=== PATIENT | male | born 1940 | race Caucasian/White ===

== ENCOUNTER 2024-03-25 11:41 | Outpatient (REF) | payer OTHER, SELFPAY | END 2024-03-25 11:42 | disposition home or self-care (01) | LOC: HO.LAB 11:41 | DX: Z13.89 Encounter for screening for other disorder (principal) ==

== ENCOUNTER 2024-03-25 11:41 | Outpatient (AMB) | payer OTHER, SELFPAY ==
--- NOTE | 2024-03-25 12:46 | AM.OFFWIN_ITS ---
Intake Vital Signs 03/25/24 13:11 Weight 198 lb BP 126/78 Blood Pressure Location Rt brachial Position Sitting Pulse 62 Pulse Source Pulse Oximeter Temp 98.2 F Temp Source Oral Pulse Oximetry (%) 98 Oxygen Delivery Method Room Air Intake Visit Reasons: EP cold, cough, congested Intake Note: Patient here for cough, congestion and wheezing that started Thursday Patient Tobacco Use Status: Never used Tobacco Allergies No Known Allergies Allergy (Verified 03/25/24 13:13) Do you need a note to return to daycare/school/sports/work: No HPI HPI Comments History of Present Illness Details History - The patient is an 83-year-old male pre senting with cough and wheezing. - Symptoms, including sore throat, cough , and wheezing, started last Thursday and have persisted for three days. - The patient reports having previous ep isodes of pneumonia and acknowledges a lower lobe lung problem related to smoking. - There is no current use of inhalers, a nd [id number] medications have not provided relief. - Notable absent symptoms include fever, ear pain, and sinus pain. - The cough is severe, causing wheezing and necessitating postural changes to manage. - The patient's son has similar symptoms , suggesting potential exposure. Physical Exam General: Cooperative, healthy appearing, comfortable and no acute distress Orientation/consciousness: Patient oriented x3 Limitations: No limitations Head: Normal to inspection Ears: Hearing grossly normal bilaterally, external ears normal and TM's normal bilaterally Nose: Normal external nose present, Normal nares present and No nasal discharge present Face and sinus: Normal facial exam and Yes sinuses nontender Mouth: Normal oral and palatal mucosa present and moist mucous membranes Throat: Yes tonsils normal, Yes uvula midline. Posterior oropharynx erythema Eyes: Appearance normal, both eyes and all related structures Neck: Normal visual inspection Respiratory: Vesicular lung sounds throughout with exp wheezes throughout. Normal respiratory effort, able to speak in complete sentences, Actively coughing, no respiratory distress, not tachypneic, no tripod positioning and no use of accessory muscles, wheezing on exhale, some junk in lungs Cardiovascular: Regular rate and rhythm. Normal S1 and S2 Skin: No rashes or lesions noted Neuro: Patient oriented x3 Extremities: Normal to inspection and Yes no clubbing, cyanosis or edema PFSH Social History Patient Tobacco Use Status: Never used Tobacco Review of Systems Const All systems reviewed & are unremarkable except as noted in HPI and below Physical Exam Vital Signs: Last Vital Signs Temp 98.2 F 03/25/24 13:11 Pulse 62 03/25/24 13:11 BP 126/78 03/25/24 13:11 Pulse Ox 98 03/25/24 13:11 Oxygen Delivery Method Room Air 03/25/24 13:11 Assessment & Plan Assessment & Plan (1) Lower respiratory infection (e.g., bronchitis, pneumonia, pneumonitis, pulmonitis): Code(s): J22 - Unspecified acute lower respiratory infection Plan: The patient is scheduled for a respiratory viral panel test, and a chest x-ray has been ordered to evaluate for possible pneumonia. Treatment decisions will follow these diagnostic results. Prednisone has been prescribed to manage wheezing. The patient is advised to collect the prednisone from the pharmacy and initiate treatment in the morning to avoid potential sleep disturbances. Further antibiotic therapy will be contingent upon the respiratory panel results. Follow-up communication will be established to relay the results of the chest x- ray and the viral panel, adjusting the treatment plan as needed based on findings, with the aim of providing the appropriate medical intervention promptly. Patient was informed and verbally consented to the use of an ambient scribe for clinic note documentation during this visit Orders: Orders XR chest 2V Today R05.9 - Cough, unspecified Resp Pathogen Panel - [facility] [place] Today J06.9 - Acute upper respiratory infection, unspecified Medications: New prednisone 40 mg (2 x 20 mg) PO DAILY 10 tabs 0RF Coding Level of Care Code New Pt Level 4 (80784) Diagnoses Lower respiratory infection (e.g., bronchitis, pneumonia, pneumonitis, pulmonitis) J22
[2024-03-25 13:11] VITALS: BP 126/78; PULSE 62; TEMP 36.8; O2SAT 98
== END 2024-03-25 13:28 | disposition home or self-care (01) ==
PROVIDERS: Visit Provider Physician Assistant
DX: J22 Unspecified acute lower respiratory infection (principal)

== ENCOUNTER 2024-03-25 13:26 | Outpatient (REF) | payer OTHER, SELFPAY ==
--- NOTE | ~2024-03-25 | XR_ITS ---
CLINICAL HISTORY: R05.9 - Cough, unspecified 2 view chest x-ray Comparison: None Findings: No consolidation, pleural effusion or pneumothorax. Cardiac silhouette is mildly enlarged. No CHF. Thoracic spondylosis with multilevel endplate osteophytes. IMPRESSION: 1. No acute findings. This document has been electronically signed by: Digna Melendez DO on 03/25/2024 15:13:56
[2024-03-26 10:05] LABS: Adenovirus PCR Not Detected (Not Detect.); Bordetella parapertussis PCR Not Detected (Not Detect.); Bordetella pertussis PCR Not Detected (Not Detect.); Chlamydia pneumoniae PCR Not Detected (Not Detect.); Coronavirus 229E PCR Not Detected (Not Detect.); Coronavirus HKU1 PCR Not Detected (Not Detect.); Coronavirus NL63 PCR Not Detected (Not Detect.); Coronavirus OC43 PCR Not Detected (Not Detect.); Human metapneumovirus PCR Not Detected (Not Detect.); Influenza A PCR Not Detected (Not Detect.); Influenza B PCR Not Detected (Not Detect.); Mycoplasma pneumoniae PCR Not Detected (Not Detect.); Parainfluenza 1 PCR Not Detected (Not Detect.); Parainfluenza 2 PCR Not Detected (Not Detect.); Parainfluenza 3 PCR Not Detected (Not Detect.); Parainfluenza 4 PCR Not Detected (Not Detect.); RSV PCR Detected (Not Detect.); Rhino/Enterovirus PCR Not Detected (Not Detect.)
[2024-03-26 10:35] LABS: SARS-CoV-2 PCR Not Detected (Not Detect.)
== END 2024-03-25 13:27 | disposition home or self-care (01) ==
LOC: HO.HMGCX 13:26
PROVIDERS: PCP Internal Medicine; Visit Provider Physician Assistant
DX: R05.9 Cough, unspecified (principal); J06.9 Acute upper respiratory infection, unspecified
CPT/HCPCS: 71046; 87633

== ENCOUNTER → 2024-03-25 13:32 | Outpatient (BNV) | payer OTHER, SELFPAY | PROVIDERS: PCP Internal Medicine; Visit Provider Radiology Diagnostic Radiology | DX: R05.9 Cough, unspecified (principal) | CPT/HCPCS: 71046 ==

== ENCOUNTER 2024-05-23 08:06 | Outpatient (AMB) | payer OTHER, SELFPAY ==
[2024-05-23 08:11] VITALS: BP 132/90; PULSE 80; TEMP 36.9; O2SAT 95
--- NOTE | 2024-05-23 08:11 | AM.OFFWIN_ITS ---
Intake Vital Signs 3 05/23/24 08:11 Weight 199 lb BP 132/90 H Blood Pressure Location Lt brachial Position Sitting Pulse 80 Pulse Source Pulse Oximeter Temp 98.4 F Temp Source Oral Pulse Oximetry (%) 95 Oxygen Delivery Method Room Air Intake Visit Reasons: EP ? infection inside mouth jaw & lips Intake Note: Patient here for lip swelling and jaw pain that started about 4-5 days ago. Patient Tobacco Use Status: Never used Tobacco Allergies No Known Allergies Allergy (Verified 05/23/24 08:21) Do you need a note to return to daycare/school/sports/work: No HPI HPI Comments 2 History of Present Illness0 Details History of Present Illness The patient is an 83-year-old male presenting with dental infection. Reports tenderness in the lip and jaw, with the bottom lip swollen and sore gums. These symptoms started four to five days ago. The patient denies any tingling, numbness, or throat involvement, and there are no reported fevers. There is no dental pain, although one front tooth is noted to be loose. The patient has been advised to consult a dentist for a thorough evaluation and management of the condition. Physical Exam General: Cooperative, healthy appearing, comfortable, no acute distress and well developed Orientation: Patient oriented x3 Limitations: No limitations Head: Normal to inspection Ears: Hearing grossly normal bilaterally Nose: Normal Nxternal nose present Face and sinus: Tenderness in the jaw, swollen bottom lip Eyes: Appearance normal, both eyes and all related structures Neck: Normal visual inspection and Yes full ROM Respiratory: Normal respiratory effort and able to speak in complete sentences. Skin: No rashes or lesions noted Neuro: Patient oriented x3 Extremities: Normal to inspection [facility] Social History Patient Tobacco Use Status: Never used Tobacco Review of Systems Const All systems reviewed & are unremarkable except as noted in HPI and below Physical Exam Vital Signs: Last Vital Signs Temp 98.4 F 05/23/24 08:11 Pulse 80 05/23/24 08:11 BP 132/90 H 05/23/24 08:11 Pulse Ox 95 05/23/24 08:11 Oxygen Delivery Method Room Air 05/23/24 08:11 HEENT Teeth image: 2 1. erythema, ttp and slight edema,no drainage Assessment & Plan Assessment & Plan (1) Dental infection: Code(s): K04.7 - Periapical abscess without sinus Plan: The patient is directed to commence treatment with Augmentin, dosed every 12 hours for seven days, to manage the suspected dental infection. The patient is instructed to follow up with their dentist to determine the need for further interventions, such as potential tooth extraction, XR's and identify exact cause and long-term fix. This prescription aims to mitigate the current infection symptoms while awaiting dental evaluation to understand the root cause and implement appropriate care to prevent recurrence. Patient was informed and verbally consented to the use of an ambient scribe for clinic note documentation during this visit. Medications: New 2 amoxicillin-pot clavulanate 875-125 mg 1 tab PO Q12H 14 tabs 0RF Coding Level of Care Code New Pt Level 3 (28114) Diagnoses Dental infection K04.7
== END 2024-05-23 09:36 | disposition home or self-care (01) ==
PROVIDERS: Visit Provider Physician Assistant
DX: K04.7 Periapical abscess without sinus (principal)

== ENCOUNTER 2024-08-16 09:11 | Outpatient (AMB) | payer MEDICARE, SELFPAY ==
--- NOTE | 2024-08-16 09:34 | AM.OFFWIN_ITS ---
Intake Vital Signs 08/16/24 09:43 Height 5 ft 6 in Weight 199 lb BMI 32.1 BP 122/80 Blood Pressure Location Rt brachial Position Sitting Pulse 66 Pulse Source Pulse Oximeter Temp 98.6 F Temp Source Oral Pulse Oximetry (%) 96 Oxygen Delivery Method Room Air Intake Visit Reasons: PE cold symptoms, 2 weeks Patient Tobacco Use Status: Never used Tobacco Allergies No Known Allergies Allergy (Verified 08/16/24 09:35) Do you need a note to return to daycare/school/sports/work: No HPI HPI Comments History of Present Illness Details History - The patient is an 83-year-old male pre senting with wheezing and respiratory symptoms for evaluation. - Presents with wheezing, mucus, cough, and sore throat that have persisted for 2 weeks. - No fever reported; however, the patien t mentions slight fatigue. - Patient has a medical history of Chron ic Obstructive Pulmonary Disease (COPD). - Has not been using an inhaler or any a llergy medication on a daily basis. - Used to have an inhaler with a spacer, but it hasn?t been used recently as he has no more medication. - Absence of ear pain or discomfort - Patient denies recent exposure to asth ma triggers or allergens but mentions using steroids in past treatments Physical Exam General: Cooperative, healthy appearing, comfortable and no acute distress Orientation/consciousness: Patient oriented x3 Limitations: No limitations Head: Normal to inspection Ears: Hearing grossly normal bilaterally, external ears normal and TM's normal bilaterally Nose: Normal external nose present, Normal nares present and No nasal discharge present Face and sinus: Normal facial exam and Yes sinuses nontender Mouth: Normal oral and palatal mucosa present and moist mucous membranes Throat: Yes tonsils normal, Yes uvula midline. Posterior oropharynx erythema Eyes: Appearance normal, both eyes and all related structures Neck: Normal visual inspection Respiratory: expiratory wheezes throughout. Normal respiratory effort, able to speak in complete sentences, actively coughing, no respiratory distress, not tachypneic, no tripod positioning and no use of accessory muscles Cardiovascular: Regular rate and rhythm. Normal S1 and S2 Skin: No rashes or lesions noted Neuro: Patient oriented x3 Extremities: Normal to inspection and Yes no clubbing, cyanosis or edema PFSH Social History Patient Tobacco Use Status: Never used Tobacco Review of Systems Const All systems reviewed & are unremarkable except as noted in HPI and below Physical Exam Vital Signs: Last Vital Signs Temp 98.6 F 08/16/24 09:43 Pulse 66 08/16/24 09:43 BP 122/80 08/16/24 09:43 Pulse Ox 96 08/16/24 09:43 Oxygen Delivery Method Room Air 08/16/24 09:43 BMI result Body Mass Index 32.1 Assessment & Plan Assessment & Plan (1) Lower respiratory infection (e.g., bronchitis, pneumonia, pneumonitis, pulmonitis): Code(s): J22 - Unspecified acute lower respiratory infection Plan: VSS, pt well appearing and PE unremarkable. A structured approach is implemented in response to the patient's respiratory symptoms and confirmed history of Chronic Obstructive Pulmonary Disease (COPD). Initiatives include influenza, COVID-19, and RSV tests to rule out these infections, accompanied by a chest X-ray to identify potential pneumonia. Pending these evaluations, a steroid course is prescribed?40 mg in the morning for five days?to alleviate symptoms and avoid sleep disturbances. The patient receives a new inhaler, advised for use every six hours as required to control respiratory distress. Medication collection is arranged at a specified pharmacy, and steroid administ ration should follow the chest X-ray. Updates will include results for viral tests and X-ray findings, and potential antibiotics may follow if bacterial pneumonia is seen. Patient was informed and verbally consented to the use of an ambient scribe for clinic note documentation during this visit Orders: Orders SARS-CoV2/FLU/RSV Today R09.89 - Other specified symptoms and signs involving the circulatory and respiratory systems XR chest 2V Today R05.9 - Cough, unspecified Medications: New albuterol sulfate 90 mcg/actuation 2 puffs inhalation Q6H PRN 8.5 grams 0RF shortness of breath or wheezing or cough prednisone 40 mg (2 x 20 mg) PO QAM 10 tabs 0RF Coding Level of Care Code New Pt Level 4 (32765) Diagnoses Lower respiratory infection (e.g., bronchitis, pneumonia, pneumonitis, pulmonitis) J22
[2024-08-16 09:43] VITALS: BP 122/80; PULSE 66; TEMP 37; O2SAT 96; BMI 32.1
== END 2024-08-16 10:38 | disposition home or self-care (01) ==
PROVIDERS: Visit Provider Physician Assistant
DX: J22 Unspecified acute lower respiratory infection (principal)

== ENCOUNTER 2024-08-16 09:11 | Outpatient (REF) | payer MEDICARE, SELFPAY ==
--- NOTE | ~2024-08-16 | XR_ITS ---
EXAMINATION: XR CHEST CLINICAL INFORMATION: R05.9 - Cough, unspecified COMPARISON: 03/25/2024 TECHNIQUE: 2 views of the chest were obtained. FINDINGS: The cardiac, hilar, and mediastinal contours are normal. The lungs are clear bilaterally. There is no pneumothorax or pleural effusion. There is no focal osseous or soft tissue abnormality. There are degenerative spinal changes. XR/XR chest 2V IMPRESSION: No active pulmonary disease. Electronically signed by: Rosales Servin MD 08/16/2024 10:45 AM EDT
[2024-08-16 14:15] LABS: Influenza A PCR NEGATIVE (Negative); Influenza B PCR NEGATIVE (Negative); Resp Syncy Virus RNA Qual PCR NEGATIVE (Negative); SARS COV2 PCR INHOUSE NEGATIVE (Negative)
== END 2024-08-16 09:12 | disposition home or self-care (01) ==
LOC: HO.HMGCX 09:11
PROVIDERS: Visit Provider Physician Assistant
DX: J22 Unspecified acute lower respiratory infection (principal); R05.9 Cough, unspecified; R09.89 Other specified symptoms and signs involving the circulatory and respiratory systems
CPT/HCPCS: 0241U; 71046; 99212

== ENCOUNTER → 2024-08-16 10:27 | Outpatient (BNV) | payer MEDICARE, SELFPAY | PROVIDERS: Visit Provider Radiology Diagnostic Radiology | DX: R05.9 Cough, unspecified (principal) | CPT/HCPCS: 71046 ==